=== PATIENT | female | born 1955 | race Caucasian/White ===

== ENCOUNTER 2017-03-31 05:36 | Day surgery (SDC) | payer OTHER ==
[~2017-03-31] VITALS: Ht 162.6 cm; Wt 63.6 kg
[2017-03-31 06:28] VITALS: Ht 162.6 cm; Wt 63.6 kg
[2017-03-31] MEDS ORDERED: OMEP40CA6 PO (06:37)
[2017-03-31] MEDS ORDERED: MULT-542 PO (06:37)
[2017-03-31 06:54] VITALS: BP 125/71; PULSE 71; RESP 12
[2017-03-31] MEDS ORDERED: MIDAZOLAM 1 MG/ML 2 ML INJ ONE ×2 (07:45)
[2017-03-31] MEDS ORDERED: FENTAnyl 50 MCG/ML VIAL ONE (07:45)
[2017-03-31 08:02] VITALS: BP 113/67; RESP 20
--- NOTE | 2017-03-31 10:09 | GILP ---
DATE OF PROCEDURE: 03/31/2017 NAME OF PROCEDURE: Esophagogastroduodenoscopy and biopsy. SURGEON: Allen De La Cruz MD PREOPERATIVE DIAGNOSES: 1. Chronic heartburn. 2. Gastroesophageal reflux disease. POSTOPERATIVE DIAGNOSES: 1. Gastroesophageal reflux disease. 2. Gastritis with erosions. 3. Gastric mucosal biopsies were taken for Helicobacter pylori test. 4. Multiple gastric polyps. 5. Biopsies were taken for histopathology. INDICATION FOR THE PROCEDURE: Ms. Ginette Marte is a 62-year-old female patient who had gastroesoph ageal reflux disease with chronic coughing not responding to therapy. The patient was scheduled for endoscopic examination for further evaluation. The procedure and possible complications are well explained to the patient. She understood and cons ented to the procedure. DESCRIPTION OF PROCEDURE: Under the influence of fentanyl and Versed, the gastroscope was carefully introduced into the esophagus and under direct vision, it was advanced to the stomach and through t he pylorus into the duodenal bulb and descending duodenum. FINDINGS: ESOPHAGUS: The patient had gastroesophageal reflux disease. STOMACH: She had gastritis with erosions. Gastric mucosal biopsies were taken for H. pylori test. Patient also had multiple gastric polyps and biopsies were taken for histopathology. DUODENUM: Normal. The patient tolerated the procedure very well and there was no complication from the procedure. At the end of the procedure, she was awake with stable vital signs and she was discharged home to the are of her family. IMPRESSION: Please see postoperative diagnosis. PLAN: 1. Omeprazole 40 mg p.o. q.a.m. 2. Zantac 300 mg p.o. at bedtime. 3. Await histopathology reports. Dictated By: ALLEN FLORES/BRANDI Conf#: [id number] DID#: [id number] CC: ALLEN DE LA CRUZ MD;*EndCC*
== END 2017-03-31 18:00 | disposition home or self-care (01) ==
LOC: GIL 05:36
PROVIDERS: ATTEND Internal Medicine Gastroenterology
DX: K21.9 Gastro-esophageal reflux disease without esophagitis (principal); K29.60 Other gastritis without bleeding; K31.7 Polyp of stomach and duodenum
CPT/HCPCS: 43239; 87081; 88305; J2250; J3010; Z7610

== ENCOUNTER 2018-05-25 05:45 | Day surgery (SDC) | END 2018-05-25 10:06 | disposition home or self-care (01) ==

== ENCOUNTER 2019-08-03 06:50 | Day surgery (SDC) | payer OTHER ==
[~2019-08-03] VITALS: Ht 157.5 cm; Wt 59.7 kg
[~2019-08-03 06:50] MED LIST: MULT-542 PO; OMEP40CA38 PO; PROTONIX; ZANTAC
[2019-08-03 07:32] VITALS: Ht 157.5 cm; Wt 59.7 kg
[2019-08-03 07:38] VITALS: BP 142/68; PULSE 82; RESP 18
[2019-08-03] MEDS ORDERED: MIDAZOLAM 1 MG/ML 2 ML INJ ONE ×4 (08:42)
[2019-08-03] MEDS ORDERED: FENTAnyl 50 MCG/ML VIAL ONE (08:42)
[2019-08-03 08:50] VITALS: BP 123/64; PULSE 68; RESP 18
[2019-08-03 09:36] VITALS: BP 130/90; PULSE 67; RESP 18
== END 2019-08-03 11:37 | disposition home or self-care (01) ==
LOC: GIL 06:50
PROVIDERS: ATTEND Internal Medicine Gastroenterology
DX: R19.4 Change in bowel habit (principal); K64.8 Other hemorrhoids; K21.9 Gastro-esophageal reflux disease without esophagitis; K29.60 Other gastritis without bleeding
CPT/HCPCS: 43239; 45378; 88305; 88312; J2250; J3010; Z7610